=== PATIENT | female | born 2000 | race Caucasian/White ===

== ENCOUNTER 2022-02-24 13:09 | Outpatient (REF) | payer BC, SELFPAY ==
--- NOTE | ~2022-02-24 | US_ITS ---
EXAMINATION: US PELVIC AND TRANSVAGINAL CLINICAL INFORMATION: Ovarian cyst. COMPARISON: None TECHNIQUE: Ultrasound of the pelvis is performed using both transabdominal and transvaginal transducers along with Doppler. Transvaginal imaging is performed due to inadequate visualization transabdominally. FINDINGS: UTERUS: The uterus is retroverted and measures 7.8 x 3.8 x 4.9 cm. The double wall endometrial thickness is 7 mm. The uterus is smooth in contour and has normal myometrial echogenicity. No visible fibroid. A nabothian cyst is present in the cervix. ADNEXA: Both ovaries are visualized. There is normal color flow to the adnexa. There is no ovarian torsion. There is no pelvic ascites or fluid collection. Right ovary measures 3.5 x 2.1 x 2.2 cm for a volume of 7.2 mL and normal follicular cysts are noted. Left ovary measures 3.8 x 1.9 x 2.6 cm for a volume of 10 mL and normal follicular cysts are noted. US/US pelvic and transvaginal IMPRESSION: Normal exam.
== END 2022-02-24 13:10 | disposition home or self-care (01) ==
LOC: HO.HMGCX 13:09
PROVIDERS: Visit Provider Nurse Practitioner Family
DX: N83.202 Unspecified ovarian cyst, left side (principal)
CPT/HCPCS: 76830; 76856

== ENCOUNTER 2022-05-05 14:08 | Outpatient (REF) | payer BC, SELFPAY ==
[2022-05-05 18:43] LABS: CT PCR NOT DETECTED (Not Detect.); NG PCR NOT DETECTED (Not Detect.)
[2022-05-06 15:11] LABS: BV Int Neg Control Negative (Negative); BV Int Pos Control Positive (Positive)
== END 2022-05-05 14:09 | disposition home or self-care (01) ==
LOC: HO.LNP 14:08
PROVIDERS: PCP Nurse Practitioner Family; Visit Provider Advanced Practice Midwife
DX: Z01.419 Encounter for gynecological examination (general) (routine) without abnormal findings (principal); E66.9 Obesity, unspecified; E28.2 Polycystic ovarian syndrome; Z86.39 Personal history of other endocrine, nutritional and metabolic disease; Z32.02 Encounter for pregnancy test, result negative; Z87.42 Personal history of other diseases of the female genital tract; Z79.899 Other long term (current) drug therapy; Z20.2 Contact with and (suspected) exposure to infections with a predominantly sexual mode of transmission
CPT/HCPCS: 0353U; 81025; 87480; 87510; 87660; 88142

== ENCOUNTER 2022-06-08 12:15 | Outpatient (REF) | payer BC, SELFPAY ==
[2022-06-08 13:05] LABS: Hematocrit 42.3 % (37.0-47.0); Hemoglobin 14.2 g/dl (12.0-16.0); Mean Corpuscular HGB Conc 33.6 g/dl (31.0-35.0); Mean Corpuscular Hemoglobin 28.3 pg (27.0-33.0); Mean Corpuscular Volume 84.4 fL (80.0-98.0); Mean Platelet Volume 8.9 fL (9.4-12.3); Platelet Count 314 X10*3/uL (160-400); Red Blood Count 5.01 X10*6/uL (4.20-5.50); Red Cell Distribution Width 12.1 % (11.0-16.0); White Blood Count 5.3 X10*3/uL (4.8-10.8)
[2022-06-08 13:46] LABS: Alanine Aminotransferase 37 U/L (0-31); Albumin Level 4.7 g/dL (3.5-5.0); Alkaline Phosphatase 71 U/L (39-117); Anion Gap 14 (12-20); Aspartate Amino Transferase 22 U/L (5-31); Bilirubin Total 0.6 mg/dL (0.0-1.0); Blood Urea Nitrogen 8 mg/dL (9-16); Calcium 9.9 mg/dL (8.4-10.2); Carbon Dioxide 25 mmol/L (22-29); Chloride 106 mmol/L (96-108); Cholesterol 253 mg/dL; Estimated Glomerular Filt Rate > 60; Glucose Fasting 97 mg/dL (60-99); HDL Cholesterol 34 mg/dL; LDL Cholesterol Calculated 180 mg/dl; Potassium 4.9 mmol/L (3.3-5.1); Sodium 140 mmol/L (135-145); Total Protein 7.7 g/dL (6.5-8.0); Triglycerides 196 mg/dL
[2022-06-08 14:03] LABS: TSH reflex Free T4 0.99 uIU/mL (0.32-4.0)
[2022-06-10 06:34] LABS: Lutenizing Hormone 12.4 mIU/mL
[2022-06-14 18:34] LABS: Testosterone, Free 8.8 pg/mL (0.1-6.4); Testosterone, Total 57 ng/dL (2-45)
== END 2022-06-08 12:16 | disposition home or self-care (01) ==
LOC: HO.LAB 12:15
PROVIDERS: PCP Nurse Practitioner Family; Referring Provider Nurse Practitioner Family; Visit Provider Advanced Practice Midwife
DX: Z00.00 Encounter for general adult medical examination without abnormal findings (principal); E66.9 Obesity, unspecified; Z87.42 Personal history of other diseases of the female genital tract
CPT/HCPCS: 36415; 80053; 80061; 83001; 83002; 84402; 84403; 84443; 85027

== ENCOUNTER 2024-09-22 13:42 | Outpatient (AMB) | payer OTHER, SELFPAY ==
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
[2024-09-22 13:49] VITALS: BP 119/76; PULSE 87; RESP 16; TEMP 36.7; O2SAT 97; BMI 32.4
--- OUTSIDE RECORDS SUMMARY | 2024-09-22 14:23 | XMS_ITS | Data Portability ---
Author Organization LEOPOLDO [employer] mercedes [address] Address [address] [place] [address] Assessment Encounter Date Assessment Date Assessment LastModified by Organization Details LastModified Time 03/21/2023 03/21/2023 Refer to H&P for more detail. Briefly seen on 03/09 for URI and asymptomatic potential STD exposure. Tested positive for ureaplasma and getting treated with z-raj ( on day 3/5 at today virtual visit). Had unprotected sexual intercourse and developed dysuria today and wanted to extend or restart her z-raj. Discussed that ureaplasma could be part of vaginal freya and given initially asymptomatic didn't need to be treated. Regardless, advised to finish the z-raj and follow up in person if continued symptoms to r/o UTI vs STI vs other. [email or web address] Not available 03/21/2023 13:28:58 Plan of Treatment Reminders Order Date Submit Date Provider Last Modified By Organization Details Last Modified Time Details Appointments None recorded. Lab vaginal pathogens panel, CHRISS+probe, vaginal fluid 2023 024 [facility] ([place]), [address] [place], [address], 4 12:06:36 HIV 1 + 2 RNA panel, CHRISS+probe, serum or plasma 2023 024 yestrella 5 [facility] ([facility], [address] [place], [address], 4 09:50:17 Hepatitis C IgG Ab, qual, serum 2023 024 [facility] [address] [place], [address], 4 12:06:37 RPR (rapid plasma reagin), serum 2023 024 BURKE [facility] ([place]), [address] [place], [address], 4 12:06:38 chlamydia trachomatis + neisseria gonorrhoeae + trichomonas vaginalis DNA panel, CHRISS+probe, urine 2023 024 yestrella 5 [facility] ([place]), [address] [place], [address], 4 09:50:18 rapid strep group A, throat 2023 024 [id number] [place], [address], 4 12:22:01 rapid flu (A+B) 2023 024 [id number] [place], [address], 4 12:22:02 SARS CoV 2 (COVID-19) Ag, QL, IA, upper respiratory specimen 2023 024 [id number] [place], [address], 4 12:22:03 culture, respiratory 2023 024 [facility] ([place]), [address] [place], [address], 4 16:06:39 Referral None recorded. Procedures None recorded. Surgeries None recorded. Imaging None recorded. Medication Orders prednisone 20 mg tablet 2023 024 CLARKE Not available 11:11:27 Patient TargetsNo targets recorded. Patient Instructions Encounter Date Encounter Id Patient Instructions Last Modified By Organization Details Last Modified Time 03/09/2023 [id number] asthma in adults : care instructions Not available 03/09/2023 12:21:58 exposure to sexually transmitted infections: care instructions Not available 03/09/2023 12:21:58 upper respirator y infection (cold): care instructions Not available 03/09/2023 12:21:57 03/21/2023 [id number] painful urinatio n (dysuria): care instructions [email or web address] Not available 03/21/2023 12:17:07 Reason for Referral None Reported. Results Created Date Observation Date Name Description Value Unit Range Abnormal Flag Note LastModifiedBy Organization Detail LastModifiedTime 03/09/1903/12/2023 UPPER RESPI RATOR Y CULTU RE upper respiratory culture FINAL REPORT Not Available [facility] ([facility]) [address] [place], [address], 03/12/2023 16:06:39 03/09/19 24 03/12/2023 UPPER RESPI RATOR Y CULTU RE result 1 COMMEN T Routi ne respi rator y freya Not Available [facility] ([facility]) [address] [place], [address], 03/12/2023 16:06:39 03/09/19 24 03/12/2023 NUSWA B VAGIN ITIS PLUS (VG+) trich vag by CHRISS NEGATI VE negati ve Not Available [facility] ([facility]) [address] [place], [address], 03/13/2023 12:06:36 03/09/1903/12/2023 NUSWA B VAGIN ITIS PLUS (VG+) chlamydia trachomatis, CHRISS NEGATI VE negati ve Not Available [facility] ([facility]) [address] [place], [address], 03/13/2023 12:06:36 03/09/1921 0303/12/2023 NUA B VAGIN ITIS PLUS (VG+) neisseria gonorrhoeae, CHRISS NEGATI VE negati ve Not Available [facility] ([facility]) [address] [facility], [place], [address], 03/13/2023 12:06:36 03/09/19 24 03/13/2023 NUSWA B VAGIN ITIS PLUS (VG+) atopobium vaginae TNP Test not perfo rmed Not Available [facility] ([facility]) [address] [facility], [place], [address], 03/13/2023 12:06:36 03/09/19 24 03/13/2023 NUA B VAGIN ITIS PLUS (VG+) bvab 2 TNP Test not perfo rmed Not Available [facility] ([facility]) [address] [facility], [place], [address], 03/13/2023 12:06:36 03/09/19 24 03/13/2023 NUA B VAGIN ITIS PLUS (VG+) megasphaera 1 TNP Test not perfo rmed Not Available [facility] ([facility]) [address] [facility], [place], [address], 03/13/2023 12:06:36 03/09/19 24 03/13/2023 NUA B VAGIN ITIS PLUS (VG+) brayan albicans, CHRISS TNP Test not perfo rmed Not Available [facility] ([facility]) [address] [place], [address], 03/13/2023 12:06:36 03/09/19 24 03/13/2023 NUSWA B VAGIN ITIS PLUS (VG+) brayan glabrata, CHRISS TNP Test not perfo rmed Not Available [facility] ([facility]) [address] [place], [address], 03/13/2023 12:06:36 03/09/19 24 03/13/2023 HCV ANTIB ALFREDO RFX TO QUANT PCR HCV Ab TNP Test not perfo rmed. No serum gel recei chasity. Not Available [facility] ([facility]) [address] [place], [address], 03/13/2023 12:06:37 03/09/19 24 03/13/2023 RPR, RFX QN RPR/C ONFIR M TP RPR TNP Test not perfo rmed. No serum gel recei chasity. Not Available [facility] ([facility]) [address] [place], [address], 03/13/2023 12:06:38 03/09/19 24 03/13/2023 NO SPECI MEN RECEI CHASITY no specimen received TNP Test not perfo rmed. No Aptim a trans port recei chasity. TEST: 1 Atopo bium vagin ae Panel : [id number] 1 10366 2 BVAB 2 Panel : 64119 1 97567 3 Megas phaer a 1 Panel : [id number] 1 42808 6 Mila da albic ans, CHRISS Panel : [id number] 1 28957 7 Mila da glabr nawaf, CHRISS Panel : [id number] 1 Not Available [facility] ([facility]) [address] [place], [address], 03/13/2023 12:06:39 03/09/19 24 03/13/2023 NO SERUM GEL RECEI CHASITY no serum gel received TNP Test not perfo rmed. No serum gel recei chasity. TEST: 95284 5 HIV-1 /HIV- 2 Quali tativ e RNA 87355 0 HCV Antib alfredo RFX to Quant PCR 66985 5 RPR, Rfx Qn RPR/C onfir m TP Not Available [facility] ([facility]) [address] [place], [address], 03/13/2023 12:06:40 03/09/19 24 03/13/[address] PROBL EM request problem COMMEN T Test not perfo rmed. No speci men recei chaisty. TEST: 99214 5 HIV-1 /HIV- 2 Quali tativ e RNA Not Available [facility] ([facility]) [address] [facility], [place], [address], 03/13/2023 12:06:40 03/09/19 24 03/12/2023 CT/GC /TV CHRISS+M YCOPL ASMAS URINE trich vag by CHRISS COMMEN T Dupli sarah proce dure order ed. Not Available [facility] ([facility]) [address] [facility], [place], [address], 03/17/2023 12:06:03 03/09/19 24 03/12/2023 CT/GC /TV CHRISS+M YCOPL ASMAS URINE chlamydia trachomatis, CHRISS COMMEN T Dupli sarah proce dure order ed. Not Available [facility] ([facility]) [address] [facility], [place], [address], 03/17/2023 12:06:03 03/09/19 24 03/12/2023 CT/GC /TV CHRISS+M YCOPL ASMAS URINE neisseria gonorrhoeae, CHRISS COMMEN T Dupli sarah proce dure order ed. Not Available [facility] ([facility]) [address] [facility], [place], [address], 03/17/2023 12:06:03 03/09/19 24 03/13/2023 CT/GC /TV CHRISS+M YCOPL ASMAS URINE mycoplasma genitalium CHRISS NEGATI VE negati ve Not Available [facility] ([facility]) [address] [facility], [place], [address], 03/17/2023 12:06:03 03/09/19 24 03/17/2023 CT/GC /TV CHRISS+M YCOPL ASMAS URINE mycoplasma hominis CHRISS NEGATI VE negati ve Not Available [facility] ([facility]) [address] [place], [address], 03/17/2023 12:06:03 03/09/1903/17/2023 CT/GC /TV CHRISS+M YCOPL ASMAS URINE ureaplasma spp CHRISS POSITI VE negati ve abnormal Not Available [facility] ([facility]) [address] [facility], [place], [address], 03/17/2023 12:06:03 03/09/19 24 03/09/2023 SARS CoV 2 (COVI D-19) Ag, QL, IA, upper respi rator y speci men Unknown Analyte negati ve Not Available [facility] [address] [place], [address], 03/09/2023 10:46:10 03/09/19 24 03/09/2023 SARS CoV 2 (COVI D-19) Ag, QL, IA, upper respi rator y speci men Unknown Analyte Negati ve Not Available [address] [place], [address], 03/09/2023 10:46:10 03/09/19 24 03/09/2023 SARS CoV 2 (COVI D-19) Ag, QL, IA, upper respi rator y speci men Unknown Analyte Yes Not Available [facility] [address] [place], [address], 03/09/2023 10:46:10 03/09/19 24 03/09/2023 rapid flu (A+B) Unknown Analyte negati ve Not Available [facility] [address] [place], [address], 03/09/2023 10:46:00 03/09/19 24 03/09/2023 rapid flu (A+B) Unknown Analyte negati ve Not Available [address] [place], [address], 03/09/2023 10:46:00 03/09/19 24 03/09/2023 rapid flu (A+B) Unknown Analyte Negati ve Not Available [address] [place], [address], 03/09/2023 10:46:00 03/09/19 24 03/09/2023 rapid flu (A+B) Unknown Analyte Yes Not Available [address] [place] [address] [address] [place], [address], 03/09/2023 10:46:00 03/09/19 24 03/09/2023 rapid strep group A, throa t Unknown Analyte negati ve Not Available [address] [place], [address], 03/09/2023 10:45:53 03/09/19 24 03/09/2023 rapid strep group A, throa t Unknown Analyte Negati ve Not Available [address] [address] [place], [address], 03/09/2023 10:45:53 03/09/1903/09/2023 rapid strep group A, throa t Unknown Analyte Yes Not Available [address] [place] [address] [address] [place], [address], 03/09/2023 10:45:53 Result Notes None recorded. Problems Name Problem SNOMED Code Status Onset Date Resolution Date Notes Provider Name and Address Organization Details Recorded Time Polycystic ovary syndrome 358969193 Active Karlie Lina daxa, [place] - [facility] 4 11:12:33 Asthma 588617747 Active 2023 Marycarmen mittal, PA - [facility] 4 10:38:06 Exacerbation of mild persistent asthma 616486864 Active 2023 Mar[facility] Schmitt [facility] [address] [facility] [address] [place], [place], [address] , [place] - [facility] 4 12:15:36 Dysuria 99219303 Active 2023 KLARISSA MARSHALL MD [address] [facility] [place], [address], [place] - [facility] 4 12:17:04 Problem Notes None recorded. Procedures Surgical History Date Name Laterality Status Provider Name and Address Organization Details Recorded Time 4 Virtual Visit completed Karliechristie Mills PA - [facility] 03/21/2023 11:06:41 Imaging Results None recorded. Procedure Notes None recorded. Medical Equipment None Reported. Allergies Allergen ID Allergen Name Allergen Category Reaction Reaction Severity Criticality Documentation Date Start Date Code Code System Note Provider Name and Address Organization Details Recorded Time 173830 amoxicill in medicatio n rash Not available Not available 03/09/2023 723 RxNorm Marycarmen mittal, PA - [facility] 4 10:35:02 615049 shellfish derived food,medi cation rash Not available Not available 03/09/2023 75677 UNK Marycarmen mittal, PA - [facility] 4 10:35:27 982207 doxycycli ne Not available vomiting Not available high 03/17/2023 3640 RxNorm LEOPOLDO Prather [address] [facility] Diya QuirinoJUNE steward, [address], [place] - [facility] 4 13:18:37 Medications Name Sig Start Date Stop Date Status Note LastModified by Organization Details LastModified Time azithromycin 250 mg tablet TAKE 2 TABLETS (500 MG) BY ORAL ROUTE ONCE DAILY FOR 1 DAY THEN 1 TABLET (250 MG) BY ORAL ROUTE ONCE DAILY FOR 4 DAYS active Not Available Not Available No t Available prednisone 20 mg tablet Take 2 tablets every day by oral route for 5 days. 03/21 completed Not Available Not Available Not Available sertraline 25 mg tablet active Not Available Not Available Not Available Vitals Date Recorded Body height Body mass index (BMI) Body weight Pain severity - 0-10 verbal numeric rating [Score] - Reported Body temperature Respiratory rate Heart rate Oxygen saturation Oxygen saturation in Arterial blood by Pulse oximetry Systolic And Diastolic Provider Name and Address Organization Details Last Updated DateTime 170.18 cm 32.9 kg/m2 39420.4 g 3 97.2 [degF] 18 /min 76 /min 100 % 100 % 113/71 mm[Hg] Marycarmen Becerril PA - [facility] 10:45:47 Date Recorded Body height Body mass index (BMI) Body weight Provider Name and Address Organization Details Last Updated DateTime 03/21/2023 170.18 cm 32.9 kg/m2 98987.4 g Karlie Mills PA - [facility] 03/21/2023 11:10:58 Social History Question Answer Notes LastModified by [employer] Details LastModified Time Tobacco Smoking Status Never Smoker Marycarmen Haileramiro mittal PA - [facility] 03/09/2023 10:37:53 Have You Had A Flu Shot This Season? No Information not available 03/09/2023 If No, Would You Like A Flu Shot Today? No Information not available 03/09/2023 Have You Had Direct Contact, Or Contact During Intimacy, With Monkeypox Rash, Scabs, Or Body Fluids From A Person With Monkeypox? No Information not available 03/09/2023 What Was The Date Of Your Most Recent Tobacco Screening? 03/21/2023 [email or web address] Information not available 03/21/2023 Have You Recently Traveled Abroad? No Information not available 03/09/2023 Sex: Unknown Functional Status Question Answer Note LastModified by [employer] Details LastModified Time Do you use any illicit or recreational drugs? No Information not available 03/09/2023 Do you or have you ever used any other forms of tobacco or nicotine? Yes Information not available 03/09/2023 What is your level of alcohol consumption? Occasional weekends Information not available 03/09/2023 Do you or have you ever used e-cigarettes or vape? Former user of electronic cigarettes Information not available 03/09/2023 Mental Status None recorded. Family History Relationship Description Onset Age of this Age Resolved Age Notes LastModified by Organization Details LastModified Time Father No current problems or disability Not available 03/09 10:36:34 Mother No current problems or disability Not available 03/09 10:36:34 Medical History No medical history recorded. Gynecological History Statement/Question Response Date of LMP 02/16/2023 Is there any chance of ? No LMP Approximate Obstetrics History GPAL:G 0 P 0 0 0 0 Past Encounters Encounter ID Performer Location Encounter Start Date Encounter Closed Date Diagnosis/Indication Diagnosis SNOMED-CT Code Diagnosis ICD10 Code Diagnosis Note [id number] [address] [place] [address] 04/11/2021 17:02:23 04/11/2021 18:02:39 [id number] [address] [place] [address] 06/07/2021 13:01:15 06/07/2021 14:18:57 [id number] [address] [place] [address] 06/14/2021 17:34:53 06/14/2021 19:03:01 [id number] [address] [place] [address] 03/20/2016 14:49:58 03/20/2016 15:22:54 [id number] [address] [place] [address] 02/17/2016 13:34:30 02/17/2016 14:06:43 [id number] [place] [address] 01/31/2017 13:48:50 01/31/2017 14:18:09 [id number] [address] [facility] [place] [address] 12/05/2021 14:48:58 12/05/2021 18:36:37 [id number] Marley Schmitt NP [address] [facility] [address] [place] [address] 03/09/2023 09:47:01 03/09/2023 12:38:37 Acute upper respiratory infection [id number] J06.9 To prevent dehydratio n, drink plenty of fluids. Choose water and other clear liquids until you feel better. If you have kidney, heart, or liver disease and have to limit fluids, talk with your doctor before you increase the amount of fluids you drink.Take an over-the-c ounter pain medicine, such as acetaminop hen (Tylenol), ibuprofen (Advil, Motrin), or naproxen (Aleve). Read and follow all instructio ns on the label.Befo re you use cough and cold medicines, check the label. These medicines may not be safe for young children or for people with certain health problems.B e careful when taking over-the-c ounter cold or flu medicines and Tylenol at the same time. Many of these medicines have acetaminop hen, which is Tylenol. Read the labels to make sure that you are not taking more than the recommende d dose. Too much acetaminop hen (Tylenol) can be harmful.Ge t plenty of rest.Do not smoke or allow others to smoke around you. If you need help quitting, talk to your doctor about stop-smoki ng programs and medicines. These can increase your chances of quitting for good. Exacerbati on of mild persistent asthma 384890425 J45.31 Exposure t o sexually transmissible disorder 235060178 Z20.2 [id number] KLARISSA MARSHALL MD [address] [facility] [address] [place] [address] 03/21/2023 10:06:49 03/21/2023 12:24:30 Dysuria 20216430 R30.0 You were seen today for urinary symptoms in the setting of recent positive ureaplasma . It is recommende d that you continue the Azithromyc in until finished and follow up in person if continued symptoms. Health Concerns Section Related Observation LastModified by Organization Detai ls LastModified Time None Recorded Concern Status LastModified by Organization Details LastModified Time None Recorded Advance Directives Directive None Recorded Payers Insurance Date Sequence Insurance Name Policy Number Policy Steele Covered Member ID Steele Member ID Guarantor Name 03/21/[address] [facility] () Angi Wilcoxendez [id number] Angi Jacobson 03/21/2023 1 [facility] [employer] [place] [id number] Angi Jacobson [id number] Angi Jacobson OBGyn Episode No OBEpisode recorded.
== END 2024-09-22 14:23 | disposition home or self-care (01) ==
LOC: HO.HMCFM 13:42
PROVIDERS: PCP Nurse Practitioner Family; Visit Provider Nurse Practitioner Family
DX: M54.9 Dorsalgia, unspecified (principal); Z09 Encounter for follow-up examination after completed treatment for conditions other than malignant neoplasm; Z00.00 Encounter for general adult medical examination without abnormal findings

== ENCOUNTER 2024-11-01 11:30 | Outpatient (REF) | payer OTHER, SELFPAY ==
--- NOTE | ~2024-11-01 | XR_ITS ---
CLINICAL HISTORY: M54.9 - Dorsalgia, unspecified 2 views thoracic spine Comparison: None provided Findings: Normal alignment. No acute fractures or dislocation. No significant degenerative change. IMPRESSION: No acute findings. This document has been electronically signed by: Opal Oneill MD on 11/03/2024 13:37:46
--- NOTE | ~2024-11-01 | XR_ITS ---
CLINICAL HISTORY: M54.9 - Dorsalgia, unspecified 3 views lumbar spine Comparison: None provided Findings: Normal alignment. No acute fractures or dislocation. No significant degenerative change. IMPRESSION: No acute findings This document has been electronically signed by: Opal Oneill MD on 11/03/2024 13:39:49
== END 2024-11-01 11:31 | disposition home or self-care (01) ==
LOC: HO.HMGCX 11:30
PROVIDERS: PCP Nurse Practitioner Family; Visit Provider Nurse Practitioner Family
DX: M54.9 Dorsalgia, unspecified (principal)
CPT/HCPCS: 72070; 72100

== ENCOUNTER → 2024-11-01 11:34 | Outpatient (BNV) | payer OTHER, SELFPAY | PROVIDERS: PCP Nurse Practitioner Family; Visit Provider Radiology Diagnostic Radiology | DX: M54.50 Low back pain, unspecified (principal) | CPT/HCPCS: 72070; 72100 ==